=== PATIENT | female | born 1960 | race Caucasian/White ===

== ENCOUNTER → 2018-12-19 12:49 | Outpatient (CLI) | payer MEDICAID, SELFPAY ==
[2018-12-19 12:34] VITALS: BMI 44.0
--- NOTE | 2018-12-19 12:51 | RAD_ITS ---
STUDY: X-RAY - LEFT KNEE REASON FOR EXAM: Female, 58 years old. Pain TECHNIQUE: Four view(s) of the knee were obtained. COMPARISON: None. FINDINGS: The distal femur is unremarkable. The proximal tibia is unremarkable. There is mild narrowing of the medial femorotibial compartment. Normal lateral femorotibial compartment. Normal patellofemoral articulation. There is no fullness above the patella. The soft tissue structures are unremarkable. RAD/Knee 4 or More Views IMPRESSION: There are mild degenerative changes in the left knee with a medial predominance. No evidence of joint effusion. Electronically Signed: Chiara Coto MD at 15:51 EST , Service support ,
== END ==
PROVIDERS: Family Provider Family Medicine; PCP Family Medicine; Referring Provider Physician Assistant; Visit Provider Physician Assistant
DX: M25.562 Pain in left knee (principal)
CPT/HCPCS: 73564

== ENCOUNTER 2020-09-01 17:36 | Emergency (ER) | payer MEDICAID, SELFPAY ==
[2018-12-19 12:34] VITALS: BMI 44.0
[2020-09-01 17:37] VITALS: BP 163/81; PULSE 79; RESP 16; TEMP 36.6; O2SAT 98; BMI 45.5
--- NOTE | 2020-09-01 18:15 | ED.DCSUM_ITS ---
History of Present Illness Chief Complaint: Back Informant: Patient Narrative: Patient is a 60-year-old female who presents to the emergency department for low back pain. This started a few hours prior to arrival in the emergency department. She states she has been having issues with back spasms over the past month. She has had ongoing issues with this and is currently seeing physical therapy for it. She tried taking a muscle relaxer prior to coming in which did not give her any relief. She currently describes the pain as severe. Movements make it worse. She denies any fevers or chills. No saddle anesthesia. No urinary/bowel incontinence/retention. The pain does go down her right leg but not past her knee. She denies any recent falls or trauma. She states that she was driving whenever the back pain started this episode. No abdominal pain or chest pain/shortness of breath. Past Medical History - Allergies and Home Meds Allergies/Adverse Reactions: Allergies Sulfa (Sulfonamide Antibiotics) Allergy (Verified 09/01/20 17:39) Other Primary Care Physician: Bradford Miramontes MD [STAFF PHYSICIAN] - 2 Days Prior records reviewed: Yes Surgical History: - - Tonsillectomy, appendectomy, cholecystectomy, Smoking Status: Former smoker - Family History Maternal Family History: Family History (Last Reviewed 10/19/17 @ 13:03 by Karo Hamilton) Father CAD (coronary artery disease) Family History: Reports: No pertinent history Review of Systems All systems negative except as indicated General: Denies: Chills, Fever, Sweats Eyes: Denies: Visual changes - bilaterally, Diplopia ENT: Denies: Rhinorrhea, Sore throat Cardiovascular: Denies: Chest pain, Palpitations Respiratory: Denies: Dyspnea, Cough, Dyspnea on exertion Gastrointestinal: Denies: Abdominal pain, Nausea, Vomiting, Diarrhea Genitourinary: Denies: Dysuria, Hematuria, Frequency Musculoskeletal: Reports: Back pain, Extremity Pain. Denies: Neck pain Skin: Denies: Rash, Wounds Neurological: Denies: Headache, Weakness, Numbness Physical Exam Vital Signs/Narrative: Vital Signs Temp Pulse Resp BP Pulse Ox 09/01/20 17:37 97.8 F 79 16 163/81 H 98 Inital Vital Signs reviewed: Yes General: Well nourished, Well developed Head: Normocephalic, Atraumatic Eyes: Perrl, EOMI ENT: Moist mucous membranes, No rhinorrhea Neck: Supple, Nontender Cardiovascular: Regular rate, Regular rhythm, No murmurs Respiratory: No distress, CTA bilaterally, Chest nontender Abdomen: Soft, Nontender, Nondistended, Normal bowel sounds Back: Normal Inspection, - - Tenderness along the right lateral lower back/upper buttocks.. Negative for: Spinal tenderness Extremities: Nontender, No edema, - - 5 out of 5 muscle strength in all 4 extremities. Neurovascularly intact. Skin: Normal color, No rash Neurological: Alert, Oriented x3, Cranial nerves II-XII grossly intact, Normal Strength, Normal Sensation Psychological: Normal affect, Normal Mood Diagnostic/Tx/Re-eval - Medical Decision Making Patient presents to the ED for nontraumatic low back pain. She has no red flag symptoms for acute surgical emergency. Initial physical exam is limited as she will not sit up due to the back pain. We will give a dose of IM morphine for symptomatic treatment. Patient feels that pain is manageable after the IM morphine. She has no weakness in her lower extremities. She does feel comfortable going home at this time. We will write a prescription for pain control at home as well as prednisone. She does have leftover prescription of a muscle relaxer which she can take but she understands that this can make her sleepy and should not operate machinery on this. She is to follow-up with her PCP. Warning signs and symptoms which to return to the ED were reviewed with her. She understands and is agreeable this plan. Patient discharged home in stable condition. All questions answered. ED Disposition - Plan for ED Patient: Disposition: Home or Assisted Living Diagnosis: Low back pain Instructions: ED Spasm Back No Trauma Prescriptions: Hydrocodone Bitart/Apap 5-325 [[place] 5MG-325MG] 1 tab PO Q6H PRN PRN 3 Days #10 tab PRN Reason: Pain Transmission Status: Received by [employer] #30 Prednisone 40 mg PO DAILY 4 Days #8 tab Prescription Printed Referrals: Bradford Miramontes MD [STAFF PHYSICIAN] - 2 Days
[2020-09-01] MEDS: Morphine 4 MG/ML Syringe IM (18:22)
[2020-09-01] MEDS: HYDROcodone Bitartrate/Apap 5/325 Tablet PO (19:46)
[2020-09-01 20:01] VITALS: BP 151/74; PULSE 72; RESP 16; O2SAT 97
== END 2020-09-01 20:36 | disposition home or self-care (01) ==
PROVIDERS: Emergency Provider Emergency Medicine; PCP Nurse Practitioner Family
DX: M54.5 Low back pain (principal); Z87.891 Personal history of nicotine dependence; Z79.82 Long term (current) use of aspirin
CPT/HCPCS: 96372; 99284

== ENCOUNTER 2022-08-15 19:34 | Emergency (ER) | payer MEDICARE, MEDICAID, SELFPAY ==
[2022-08-15 19:35] VITALS: BP 115/86; PULSE 85; RESP 16; TEMP 36.4; O2SAT 97; BMI 38.7
--- NOTE | 2022-08-15 19:54 | EDS_ITS ---
HPI <ASIA Means - Last Filed: 08/15/22 20:59> History of Present Illness Chief Complaint: Cellulitis Narrative Narrative: 62-year-old female with PMH of DVT, renal carcinoma s/p left nephrectomy presents with right leg swelling and redness. She states she does not know why but for years the right ankle has been more swollen and pink. This worsened about 3 days ago and the redness has progressively spread up towards the knee. She is having occasional pain in the foot. There is no known injury. Yesterday she had subjective fever, chills, and vomiting and was evaluated at [facility] ER early this morning. She reports having blood work and a CT scan of her abdomen/pelvis which was unremarkable except for a lymph node that needs outpatient follow-up. She was prescribed Zofran. After discharge she denies having any further fever/chills or vomiting symptoms but was concerned about her leg so she called the nurse line and they recommended she come to the ED. She does have history of DVT in the past but currently only takes aspirin 81 mg. She has no chest pain or shortness of breath. PFSH <ASIA Means - Last Filed: 08/15/22 20:59> [facility] Medical History (Updated 08/15/22 @ 20:34 by ASIA Means) DVT (deep venous thrombosis) GERD (gastroesophageal reflux disease) Obstructive sleep apnea Home Medications aspirin 81 mg tablet,delayed release 81 mg PO DAILY 12/19/18 [History Last Taken Unknown] potassium citrate 10 mEq (1,080 mg) tablet,extended release 10 meq PO TID 12/19/18 [History Last Taken Unknown] sertraline 100 mg tablet (Zoloft) 100 mg PO DAILY 12/19/18 [History Last Taken Unknown] allopurinol 300 mg tablet 300 mg PO DAILY 08/15/22 [History Last Taken Unknown] cephalexin 500 mg capsule 500 mg PO Q6 7 days #28 CAPSULES 08/15/22 [Rx Last Taken Unknown] cholecalciferol (vitamin D3) 125 mcg (5,000 unit) capsule 125 mcg PO DAILY 08/15/22 [History Last Taken Unknown] lisinopril 5 mg tablet 5 mg PO DAILY 08/15/22 [History Last Taken Unknown] quercetin 500 mg capsule 500 mg PO DAILY 08/15/22 [History Last Taken Unknown] zinc 50 mg capsule 50 mg PO DAILY 08/15/22 [History Last Taken Unknown] Allergy/AdvReac Type Severity Reaction Status Date / Time Sulfa (Sulfonamide Allergy Other Verified 09/01/20 17:39 Antibiotics) Family History Father CAD (coronary artery disease) age 47 y/o from [place] Surgical History History of extraction of renal calculus History of right and left heart catheterization (~09/04/15) History of tonsillectomy and adenoidectomy Hx of cholecystectomy Social History (Updated 12/20/18 @ 10:10 by ASIA Esteves) Smoking Status: Former smoker ROS <ASIA Means - Last Filed: 08/15/22 20:59> ROS ED ROS Narrative Constitutional: Positive for fever, chills, malaise. Eyes: Negative for visual change. ENT: Negative for sore throat, ear pain, rhinorrhea. CVS: Negative for palpitations, chest pain, syncope. Respiratory: Negative for shortness of breath, cough, orthopnea. GI: Negative for abdominal pain, nausea, vomiting, diarrhea, constipation, melena, hematochezia. : Negative for dysuria, hematuria or frequency. Neuro: Negative for headache, motor/sensory dysfunction. Skin: Positive for rash. Musc: Positive for right leg pain, swelling. No trauma. Heme: Negative for easy bruising, bleeding, lymphadenopathy. EXAM <ASIA Means - Last Filed: 08/15/22 20:59> Physical Exam Narrative Exam Narrative: CONST: Patient sitting in no acute distress. EYES: Normal inspection. NECK: Normal inspection. RESP: No respiratory distress, CTAB. CVS: Regular rate and rhythm, no murmur, no gallop. ABD: Soft and nontender, no guarding or rebound, nondistended. SKIN: Color normal, no rash, warm, dry, intact. EXTREMITIES: Right lower extremity has 2+ pitting edema to the mid tibia, there is patchy erythema over the dorsum of the foot extending up the leg and reaches the knee on the lateral calf. There are small abrasions on the lateral calf. No crepitus or fluctuance. 2+ DP pulses. NEURO: Oriented x4. PSYCH: Normal affect. Const Vital Signs: 08/15/22 19:35 Temperature 97.6 F L Temperature Source Temporal Pulse Rate 85 Respiratory Rate 16 Blood Pressure 115/86 H Blood Pressure Mean 95 Pulse Ox 97 Oxygen Delivery Method Room Air <Dr. David Mclaughlin DO - Last Filed: 08/15/22 21:14> Physical Exam Const Vital Signs: 08/15/22 19:35 Temperature 97.6 F L Temperature Source Temporal Pulse Rate 85 Respiratory Rate 16 Blood Pressure 115/86 H Blood Pressure Mean 95 Pulse Ox 97 Oxygen Delivery Method Room Air MDM <Gaviota Holcomb PA - Last Filed: 08/15/22 20:59> MDM MDM Narrative Medical decision making narrative: Patient has redness and edema of her right leg over the last few days. No trauma. She appears well and nontoxic. Afebrile with normal vital signs. Right lower leg does have 2+ pitting edema and patchy erythema over the dorsum of the foot extending up to the knee. Is also small abrasion on the lateral calf. There is no signs of abscess or necrotizing fasciitis. Extremity is neurovascularly intact. I reviewed the labs she had this morning at [facility] which show normal white count and lactate. Work-up here shows normal white count of 8.3. She will be treated for cellulitis with IV Ancef and prescribed doxycycline for home with return precautions. She was discharged in stable condition. Lab Data Attestation: I reviewed the patient's lab results. Labs: Laboratory Results - last 24 hr 08/15/22 08/15/22 20:25 20:25 WBC 8.3 RBC 4.01 L Hgb 11.9 L Hct 35.2 L MCV 87.8 MCH 29.7 MCHC 33.8 RDW Std Deviation 45.4 H RDW Coeff of [place] 14.1 Plt Count 158 MPV 9.0 Immature Gran % (Auto) 0.400 Neut % (Auto) 77.8 H Lymph % (Auto) 12.1 L [place] % (Auto) 9.1 Eos % (Auto) 0.4 Baso % (Auto) 0.2 Absolute Neuts (auto) 6.5 Absolute Lymphs (auto) 1.01 Nucleated RBC % 0 Sodium 141 Potassium 4.2 Chloride 108 H Carbon Dioxide 27.0 Anion Gap 6 BUN 22 H Creatinine 0.87 Estim Creat Clear Calc 61.96 Est GFR (MDRD) Af Amer 85 Est GFR (MDRD) Non-Af 70 BUN/Creatinine Ratio 25.3 H Glucose 103 Calcium 8.7 <Dr. David Mclaughlin, DO - Last Filed: 08/15/22 21:14> [facility] Lab Data Labs: Laboratory Results - last 24 hr 08/15/22 08/15/22 20:25 20:25 WBC 8.3 RBC 4.01 L Hgb 11.9 L Hct 35.2 L MCV 87.8 MCH 29.7 MCHC 33.8 RDW Std Deviation 45.4 H RDW Coeff of [place] 14.1 Plt Count 158 MPV 9.0 Immature Gran % (Auto) 0.400 Neut % (Auto) 77.8 H Lymph % (Auto) 12.1 L [place] % (Auto) 9.1 Eos % (Auto) 0.4 Baso % (Auto) 0.2 Absolute Neuts (auto) 6.5 Absolute Lymphs (auto) 1.01 Nucleated RBC % 0 Sodium 141 Potassium 4.2 Chloride 108 H Carbon Dioxide 27.0 Anion Gap 6 BUN 22 H Creatinine 0.87 Estim Creat Clear Calc 61.96 Est GFR (MDRD) Af Amer 85 Est GFR (MDRD) Non-Af 70 BUN/Creatinine Ratio 25.3 H Glucose 103 Calcium 8.7 Treatment and Re-Evaluation Narrative: I have personally performed a face to face assessment of the patient and have reviewed the TUNG Note. I performed a substantive portion of the visit including all aspects of the following. My hui findings include: History: Patient presents with right leg redness and swelling that has been getting worse over the past couple days. Patient denies any fevers or chills. Patient states she scratched her right lower leg recently. Patient denies any discharge or drainage. Patient denies any new trauma or injury. Exam: Vital signs are stable. Patient is afebrile. Patient is in no acute distress. There is some erythema and warmth over the right lower leg and foot. There is no fluctuance. There is no evidence of any abscess. There is superficial abrasions over the lateral aspect of the right lower leg. There is no bleeding. There is full range of motion of the right knee and ankle. Sensation is intact to light touch in all digits. Capillary refill is less than 2 seconds in all digits. Medical Decision Making: CBC was within normal limits. Basic metabolic profile was within normal limits. Patient was given a dose of Ancef here. Patient was given a prescription for Keflex. Patient was instructed to keep the wound clean and dry. Patient was instructed to follow-up with her primary care physician in 5 to 7 days. Patient understood and was agreeable with the plan. All questions were answered. Discharge Plan Triage Chief Complaint: Cellulitis ED Midlevel Provider: Gaviota Holcomb ED Provider: David Mclaughlin Dx/Rx/DC Orders Clinical Impression: Cellulitis of leg, right Instructions: Cellulitis Dc Prescriptions: New cephalexin 500 mg capsule 500 mg PO Q6 7 Days Qty: 28 0RF Discontinued doxycycline hyclate 50 mg Capsule 50 mg PO DAILY No Action potassium citrate 10 mEq (1,080 mg) tablet extended release 10 meq PO TID sertraline [Zoloft] 100 mg tablet 100 mg PO DAILY aspirin 81 mg tablet,delayed release (DR/EC) 81 mg PO DAILY allopurinol 300 mg tablet 300 mg PO DAILY Label Comments: TAKE 1 TABLET BY MOUTH DAILY lisinopril 5 mg Tablet 5 mg PO DAILY cholecalciferol (vitamin D3) 125 mcg (5,000 unit) Capsule 125 mcg PO DAILY zinc 50 mg Capsule 50 mg PO DAILY quercetin 500 mg Capsule 500 mg PO DAILY Primary Care Provider: Graham Rincon Referrals: To [facility], [facility] [Non-Staff] - Activity Restrictions/Additional Instructions: You are being treated for cellulitis of your right leg which is a skin infection. Take the doxycycline twice daily as prescribed and follow-up with your primary care doctor this week. If the redness continues to spread up your leg or you develop a fever or worsen come back to the ER. Disposition Disposition: Home, Self Care
[2022-08-15 20:31] LABS: Absolute Lymphocyte Count 1.01 X10^3/uL (0.83-4.51); Absolute Neutrophil Count 6.5 X10^3/uL (2.0-7.7); Basophil# 0.02 X10^3/uL; Basophil% 0.2 % (0-1); Eosinophil# 0.03 X10^3/uL; Eosinophils% 0.4 % (0-5); Hematocrit 35.2 % (37-47); Hemoglobin 11.9 g/dL (12.0-15.0); Lymphocyte # 1.01 X10^3/ul (0.83-4.51); Lymphocyte % 12.1 % (19-41); Mean Corp Hgb Conc 33.8 g/dL (32-36); Mean Corpuscular Hgb 29.7 pg (27.0-32.0); Mean Corpuscular Volume 87.8 fL (81-99); Monocyte# 0.76 X10^3/uL; Monocyte% 9.1 % (0-10); NRBC Flagged by Analyzer 0 % (0-5); Neutrophil # 6.48 X10^3/uL (2.7-7.7); Neutrophil % 77.8 % (47-70); Platelet Count 158 K/mm3 (150-450); RBC Distribution Width CV 14.1 % (11.6-14.6); RBC Distribution Width SD 45.4 fl (35.1-43.9); Red Blood Count 4.01 M/mm3 (4.2-5.4); White Blood Count 8.3 K/mm3 (4.4-11.0)
[2022-08-15] MEDS: Cefazolin 1 GM/50 ML BAG IV (20:31)
[2022-08-15 20:46] LABS: Anion Gap 6 (5-15); BUN 22 mg/dL (7-18); BUN/Creat Ratio 25.3 RATIO (10-20); Calcium,Total 8.7 mg/dL (8.5-10.1); Chloride 108 mmol/L (98-107); Creatinine, Serum 0.87 mg/dL (0.55-1.02); EST Glomerular Filtration Rate 70 mL/min (>60); Est Glom Filt Rate - Afr Amer 85 mL/min (>60); Estimated Creatinine Clearance 61.96 ml/min; Glucose 103 mg/dL (74-106); Potassium 4.2 mmol/L (3.5-5.1); Sodium Level 141 mmol/L (136-145)
== END 2022-08-15 21:09 | disposition home or self-care (01) ==
LOC: ED 20:38
PROVIDERS: Physician Assistant; Emergency Provider Emergency Medicine; PCP Family Medicine; Visit Provider Emergency Medicine
DX: L03.115 Cellulitis of right lower limb (principal); G47.33 Obstructive sleep apnea (adult) (pediatric); Z87.891 Personal history of nicotine dependence; Z79.82 Long term (current) use of aspirin; Z79.899 Other long term (current) drug therapy; Z86.718 Personal history of other venous thrombosis and embolism
CPT/HCPCS: 80048; 85025; 96365; 99283; A4216

== ENCOUNTER 2022-08-16 10:10 | Emergency (ER) | payer MEDICARE, MEDICAID, SELFPAY ==
[2022-08-16 10:12] VITALS: BP 116/72; PULSE 86; RESP 18; TEMP 35.9; O2SAT 97; BMI 39.2
--- NOTE | 2022-08-16 10:26 | VDLE_ITS ---
Reason For Study: swelling RLE RIGHT LEFT GSV is normal. CFV is compressible, spontaneous, phasic, CFV is compressible, spontaneous, phasic, competent, and demonstrates normal competent and demonstrates normal augmentation. augmentation. FV is compressible, spontaneous, phasic, competent and demonstrates normal augmentation. POP V is compressible, spontaneous, phasic, competent and demonstrates normal augmentation. T/P Trunk is compressible. PTV is compressible. RT PerV is compressible. Procedure This is a venous duplex using B-mode, color flow and spectral Doppler. Exam performed portable in ED. A preliminary report was called and/or faxed to ED @ 11:20 am. VL/Venous Duplex US, Unilateral Interpretation Summary There is no evidence of right lower extremity deep vein thrombosis. Right great saphenous vein appears patent and compressible segmentally. Normal flow patterns left common f emoral vein Ordering Physician: Chiara Bee Referring Physician: Vivek Rincon Performed By: Chitra Butterfield RDCS, RVT
--- NOTE | 2022-08-16 10:28 | EDS_ITS ---
HPI History of Present Illness Chief Complaint: Cellulitis Informant: patient Onset/Context/Timing Onset: Days Context: Gradual Onset Current Severity: Moderate Maximum Severity: Moderate Narrative Narrative: Patient presents secondary to redness and swelling of the right foot. Patient was seen at [facility] yesterday as well as in our emergency room last evening. Lab work was unremarkable. She is on chronic doxycycline and was written for Keflex. She woke this morning with increased redness and swelling so she came back to the emergency room. She has not yet picked up her antibiotic. She has not had fever or chills. [facility] Medical History DVT (deep venous thrombosis) GERD (gastroesophageal reflux disease) Obstructive sleep apnea Renal carcinoma Home Medications aspirin 81 mg tablet,delayed release 81 mg PO DAILY 12/19/18 [History Last Taken Unknown] potassium citrate 10 mEq (1,080 mg) tablet,extended release 10 meq PO TID 12/19 [History Last Taken Unknown] sertraline 100 mg tablet (Zoloft) 100 mg PO DAILY 12/19/18 [History Last Taken Unknown] allopurinol 300 mg tablet 300 mg PO DAILY 08/15/22 [History Last Taken Unknown] cephalexin 500 mg capsule 500 mg PO Q6 7 days #28 CAPSULES 08/15/22 [Rx Last Taken Unknown] cholecalciferol (vitamin D3) 125 mcg (5,000 unit) capsule 125 mcg PO DAILY 08/15/22 [History Last Taken Unknown] lisinopril 5 mg tablet 5 mg PO DAILY 08/15/22 [History Last Taken Unknown] quercetin 500 mg capsule 500 mg PO DAILY 08/15/22 [History Last Taken Unknown] zinc 50 mg capsule 50 mg PO DAILY 08/15/22 [History Last Taken Unknown] doxycycline monohydrate 100 mg capsule 100 mg PO BID #20 caps 08/16/22 [Rx Last Taken Unknown] hydrocodone-acetaminophen 5-325mg 5mg-325mg 1 tab PO Q6H PRN pain 3 days #10 tabs 08/16/22 [Rx Last Taken Unknown] Allergy/AdvReac Type Severity Reaction Status Date / Time Sulfa (Sulfonamide Allergy Other Verified 08/16/22 10:11 Antibiotics) Family History Father CAD (coronary artery disease) age 47 y/o from [place] Surgical History History of extraction of renal calculus History of left nephrectomy History of right and left heart catheterization (~09/04/15) History of tonsillectomy and adenoidectomy Hx of cholecystectomy Social History Smoking Status: Former smoker ROS ROS ED Constitutional Constitutional ED: Denies chills or fever(s) Eyes Eyes: Denies change in vision or discharge from eye(s) ENT ENT ED: Denies discharge from eye(s), rhinorrhea or sore throat Cardiovascular Cardiovascular: Denies chest pain or palpitations Respiratory/Chest Respiratory/Chest: Denies cough or dyspnea Gastrointestinal Gastrointestinal: Denies abdominal pain, diarrhea, nausea or vomiting Genitourinary Genitourinary ED: Denies difficulty urinating or dysuria Musculoskeletal Musculoskeletal: Reports extremity pain; Denies back pain Integumentary Reports Abrasions; Denies rash Neurologic Neurologic: Denies headache(s) or weakness Psychiatric Psychiatric: Denies anxiety or depression Allergic/Immunologic Allergic/Immunologic ED: Denies lip swelling or urticaria EXAM Physical Exam Const Vital Signs: 08/16/22 10:12 Temperature 96.6 F L Temperature Source Temporal Pulse Rate 86 Respiratory Rate 18 Blood Pressure 116/72 Blood Pressure Mean 86 Pulse Ox 97 Oxygen Delivery Method Room Air Positive well nourished and well developed General Appearance ED: well developed HEENT Reports normocephalic and head/scalp atraumatic Eyes PERRL and EOMs intact bilaterally Neck supple Chest Wall inspection of chest normal and palpation of chest normal Resp normal respiratory effort and clear to auscultation bilaterally Cardio regular rate and regular rhythm GI normal to inspection, nondistended, normoactive bowel sounds Palpation: soft Extremity Extremity Narrative: Edema and erythema to the dorsum of the right foot. Abrasions noted on the right hutton with mild patchy erythema. Neuro oriented x3 and no sensory deficits noted Sensorium / Orientation: alert Psych mental status grossly normal Skin Skin Narrative: Right lower extremity erythema as noted above. MDM MDM MDM Narrative Medical decision making narrative: I reviewed the patient's work-up from yesterday. Lab work is repeated today along with venous ultrasound of the right lower extremity. She is given a dose of vancomycin. Lab Data Attestation: I reviewed the patient's lab results. Labs: Laboratory Results - last 24 hr 08/16/22 08/16/22 08/16/22 10:39 10:39 10:39 WBC 8.4 RBC 4.39 Hgb 12.6 Hct 39.2 MCV 89.3 MCH 28.7 MCHC 32.1 D RDW Std Deviation 47.0 H RDW Coeff of [place] 14.3 Plt Count 176 MPV 9.8 Immature Gran % (Auto) 0.200 Neut % (Auto) 81.9 H Lymph % (Auto) 9.0 L [place] % (Auto) 7.6 Eos % (Auto) 0.8 Baso % (Auto) 0.5 Absolute Neuts (auto) 6.9 Absolute Lymphs (auto) 0.76 L Nucleated RBC % 0 Sodium 141 Potassium 3.7 Chloride 105 Carbon Dioxide 27.0 Anion Gap 9 BUN 19 H Creatinine 0.91 Estim Creat Clear Calc 59.24 Est GFR (MDRD) Af Amer 81 Est GFR (MDRD) Non-Af 67 BUN/Creatinine Ratio 20.9 H Glucose 93 Lactic Acid 1.1 Calcium 9.0 Treatment and Re-Evaluation Narrative: Lab work remains unremarkable with normal white count. 82% neutrophils are noted. Chemistry studies unremarkable with a normal lactic acid. Venous ultrasound of the right lower extremity is obtained. Patient states tech a dvised her that there was no evidence of a blood clot. Simone wrap will be applied to the right lower extremity to help with fluid reabsorption and swelling. I encouraged her to keep her leg elevated above the level of her heart. She will be given [place] for pain here and a prescription be sent to the pharmacy for her. She is to parts picker the antibiotic at the pharmacy that was sent yesterday. Patient reportedly is on doxycycline for acne at home. She is only on 50 mg once a day. I will also go ahead and send prescription for doxycycline 100 mg twice daily to help for MRSA coverage. When she completes this she can go back to her low-dose Doxy. Discharge Plan Triage Chief Complaint: Cellulitis ED Provider: Chiara Bee Dx/Rx/DC Orders Clinical Impression: Cellulitis Instructions: ED Cellulitis Prescriptions: New hydrocodone-acetaminophen 5-325 mg tablet 1 tab PO Q6H PRN (Reason: pain) 3 Days Qty: 10 0RF doxycycline monohydrate 100 mg capsule 100 mg PO BID Qty: 20 0RF No Action potassium citrate 10 mEq (1,080 mg) tablet extended release 10 meq PO TID sertraline [Zoloft] 100 mg tablet 100 mg PO DAILY aspirin 81 mg tablet,delayed release (DR/EC) 81 mg PO DAILY allopurinol 300 mg tablet 300 mg PO DAILY Label Comments: TAKE 1 TABLET BY MOUTH DAILY lisinopril 5 mg Tablet 5 mg PO DAILY cholecalciferol (vitamin D3) 125 mcg (5,000 unit) Capsule 125 mcg PO DAILY zinc 50 mg Capsule 50 mg PO DAILY quercetin 500 mg Capsule 500 mg PO DAILY cephalexin 500 mg capsule 500 mg PO Q6 7 Days Qty: 28 0RF Primary Care Provider: Graham Rincon Referrals: Graham Rincon MD [Primary Care Provider] - 1 Week Disposition Disposition: Home, Self Care
[2022-08-16 10:55] LABS: Absolute Lymphocyte Count 0.76 X10^3/uL (0.83-4.51); Absolute Neutrophil Count 6.9 X10^3/uL (2.0-7.7); Basophil# 0.04 X10^3/uL; Basophil% 0.5 % (0-1); Eosinophil# 0.07 X10^3/uL; Eosinophils% 0.8 % (0-5); Hematocrit 39.2 % (37-47); Hemoglobin 12.6 g/dL (12.0-15.0); Lymphocyte # 0.76 X10^3/ul (0.83-4.51); Mean Corp Hgb Conc 32.1 g/dL (32-36); Mean Corpuscular Hgb 28.7 pg (27.0-32.0); Mean Corpuscular Volume 89.3 fL (81-99); Mean Platelet Vol. 9.8 fl (6.2-12.0); Monocyte# 0.64 X10^3/uL; Monocyte% 7.6 % (0-10); NRBC Flagged by Analyzer 0 % (0-5); Neutrophil # 6.87 X10^3/uL (2.7-7.7); Neutrophil % 81.9 % (47-70); Platelet Count 176 K/mm3 (150-450); RBC Distribution Width CV 14.3 % (11.6-14.6); Red Blood Count 4.39 M/mm3 (4.2-5.4); White Blood Count 8.4 K/mm3 (4.4-11.0)
[2022-08-16 11:07] LABS: Anion Gap 9 (5-15); BUN 19 mg/dL (7-18); BUN/Creat Ratio 20.9 RATIO (10-20); Chloride 105 mmol/L (98-107); Creatinine, Serum 0.91 mg/dL (0.55-1.02); EST Glomerular Filtration Rate 67 mL/min (>60); Est Glom Filt Rate - Afr Amer 81 mL/min (>60); Estimated Creatinine Clearance 59.24 ml/min; Glucose 93 mg/dL (74-106); Potassium 3.7 mmol/L (3.5-5.1); Sodium Level 141 mmol/L (136-145)
[2022-08-16 11:15] LABS: Lactic Acid 1.1 mmol/L (0.4-1.9)
[2022-08-16] MEDS: HYDROcodone Bitartrate/Apap 5/325 Tablet PO (12:23)
[2022-08-16 12:37] VITALS: BP 118/87; PULSE 88; RESP 16; O2SAT 99
[2022-08-16 14:06] VITALS: BP 120/79; PULSE 87; RESP 16; O2SAT 99
== END 2022-08-16 14:24 | disposition home or self-care (01) ==
LOC: ED 11:49
PROVIDERS: Emergency Provider Emergency Medicine; PCP Family Medicine; Visit Provider Emergency Medicine
DX: L03.115 Cellulitis of right lower limb (principal); G47.33 Obstructive sleep apnea (adult) (pediatric); Z87.891 Personal history of nicotine dependence; Z86.718 Personal history of other venous thrombosis and embolism
CPT/HCPCS: 36415; 80048; 83605; 85025; 87040; 93971; 96365; 96366; 99283; J7040; J7050; A4216

== ENCOUNTER 2022-09-02 08:50 | Outpatient (RCR) | payer MEDICARE, MEDICAID, SELFPAY ==
[2022-09-02 09:31] VITALS: BP 123/72; PULSE 69; RESP 18; TEMP 36.3
--- NOTE | 2022-09-02 17:15 | HP.PCM_ITS ---
History of Present Illness Date of Service: 09/02/22 Chief Complaint: Non healing right leg wound History of Wound: Ms. Jennings is a 62-year-old who was referred here due to a nonhealing right leg wound. She states that the wound has been present for about 2 years however over the last couple of weeks while waiting for her visit, it healed. Started out after she tried shaving. Tried different measures without significant healing over the last 2 years but as above, over the last couple of weeks has healed and stayed healed. She reports that she does have swelling of her right lower extremity with occasional blistering of the area. Does not wear any form of compression. No shortness of breath. She feels well otherwise. FORMERLY [facility], 1928–1983 Medical History (Updated 09/02/22 @ 17:[address] Catina Mason MD) DVT (deep venous thrombosis) Edema of both lower extremities due to peripheral venous insufficiency GERD (gastroesophageal reflux disease) Obstructive sleep apnea Renal carcinoma Home Medications aspirin 81 mg tablet,delayed release 81 mg PO DAILY 12/19/18 [History Last Taken Unknown] potassium citrate 10 mEq (1,080 mg) tablet,extended release 10 meq PO TID 12/19/18 [History Last Taken Unknown] sertraline 100 mg tablet (Zoloft) 100 mg PO DAILY 12/19/18 [History Last Taken Unknown] allopurinol 300 mg tablet 300 mg PO DAILY 08/15/22 [History Last Taken Unknown] cholecalciferol (vitamin D3) 125 mcg (5,000 unit) capsule 125 mcg PO DAILY 08/15/22 [History Last Taken Unknown] lisinopril 5 mg tablet 5 mg PO DAILY 08/15/22 [History Last Taken Unknown] quercetin 500 mg capsule 500 mg PO DAILY 08/15/22 [History Last Taken Unknown] zinc 50 mg capsule 50 mg PO DAILY 08/15/22 [History Last Taken Unknown] Allergy/AdvReac Type Severity Reaction Status Date / Time Sulfa (Sulfonamide Allergy Other Verified 09/02/22 09:48 Antibiotics) Family History Father CAD (coronary artery disease) age 47 y/o from [place] Surgical History History of extraction of renal calculus History of left nephrectomy History of right and left heart catheterization (~09/04/15) History of tonsillectomy and adenoidectomy Hx of cholecystectomy Social History Smoking Status: Former smoker ROS Constitutional Constitutional: Denies anorexia, body ache(s), fatigue, frequent falls, headache(s), increased appetite, lethargy or night sweats Eyes Eyes: Denies blindness, change in eye color, change in vision, decreased night vision, discongugate gaze, double vision, loss of central vision or loss of vision ENT HEENT: Denies ear discharge, ear pain, epistaxis, foreign body in nose, halitosis, headache(s), mouth pain or nasal discharge Cardiovascular Cardiovascular: Denies chest pain at rest, chest pain with activity, claudication, clubbing, dyspnea at rest, erythema on extremities, flutter in chest or pale [place]a skin Respiratory/Chest Respiratory/Chest: Denies dusky skin, excessive phlegm production, hoarseness, inability to speak, nail bed cyanosis, pain with cough or portable oxygen @ home Gastrointestinal Gastrointestinal: Denies bloating, chewing difficulty, coffee ground emesis, cramping, dry heaves, dyspepsia, dysphagia or excessive flatus Genitourinary Genitourinary: Denies burning urination, difficulty urinating, dribbling, dysuria, flank pain or genital pain Musculoskeletal Musculoskeletal: Denies joint swelling, loss of height, muscle cramps, muscle spasms, muscle weakness, myalgias or neck pain Integumentary Integumentary: Denies erythema, jaundice, lesions, nail changes, non-healing lesions, photosensitivity, pruritus or rash Neurologic Neurologic: Denies abnormal movements, burning sensations, confusion, convulsions, disequilibrium, focal weakness, frequent falls or headache(s) Psychiatric Psychiatric: Denies cognitive impairment, confusion, depression, difficulty concentrating, hallucinations, homicidal ideation, mood swings, panic attacks or tactile hallucinations Endocrine Endocrinology: Denies excessive sweating, fatigue, flushing, heat intolerance, increase in ring/shoe/hat size, palpitations or polyphagia Hematologic/Lymphatic Hematologic/Lymphatic: Denies easy bleeding, easy bruising or lymphadenopathy Allergic/Immunologic Allergic/Immunologic: Denies tongue swelling, hives, urticaria, eczemia, wheezing or asthma Vital Signs Vital Signs Vital Signs: 09/02/22 09:31 Temperature 97.4 F L Temperature Source Temporal Pulse Rate 69 Respiratory Rate 18 Blood Pressure 123/72 H Blood Pressure Mean 89 Blood Pressure Source Monitor Physical Exam Const alert, oriented x3 and no apparent distress General Appearance: cooperative, comfortable and well developed HEENT normocephalic, head/scalp atraumatic and hearing grossly normal bilaterally Eyes EOMs intact bilaterally General Eye: normal appearance of both eyes Neck full ROM and supple General: normal visual inspection Resp normal respiratory effort Effort and Inspection: able to speak in complete sentences Extremity General Extremity: edema Skin no wounds General Skin Exam: no breakdown Neuro oriented x3, CN's II-XII intact bilaterally, moves all extremities and no focal motor deficits Psych mental status grossly normal, thought process normal, cooperative, affect normal and speech normal Charges/Coding Visit Charges Office Visits / Consults: [id number] OV L3 New Assessment/Plan Assessment/Plan (1) Edema of both lower extremities due to peripheral venous insufficiency: CODE(S): I87.2 - Venous insufficiency (chronic) (peripheral) PLAN: Plan Presents here for a chronic right lower extremity wound however at the time of this visit, wound is healed and there is no open area. There is clearly an area of hypopigmentation. Bilateral pitting edema, right greater than left. Lengthy discussion had with patient on the need for compression. Prescription for compression stockings 20 to 30 mmHg sent. She was advised to wear consistently take off at night. Leg elevation, exercise as tolerated and low-sodium discussed. Adequately moisturizing her skin also discussed. She voiced understanding. Due to no wound present currently, she will be discharged from the wound center however, she was advised to call with any further questions or concerns. She voiced understanding. This note was generated with [employer] software. It may contain incorrect words, spelling, and punctuation that were not noted in checking the note before signing.
== END 2022-09-02 14:29 | disposition home or self-care (01) ==
LOC: WC 08:50
PROVIDERS: PCP Family Medicine; Visit Provider Internal Medicine
DX: I87.2 Venous insufficiency (chronic) (peripheral) (principal); Z87.891 Personal history of nicotine dependence; Z79.82 Long term (current) use of aspirin; R60.0 Localized edema; K21.9 Gastro-esophageal reflux disease without esophagitis; G47.33 Obstructive sleep apnea (adult) (pediatric); Z86.718 Personal history of other venous thrombosis and embolism; Z79.899 Other long term (current) drug therapy
CPT/HCPCS: 99203; G0463

== ENCOUNTER 2023-08-02 19:20 | Emergency (ER) | payer MEDICARE, MEDICAID, SELFPAY ==
[2023-08-02 19:21] VITALS: BP 115/70; PULSE 73; RESP 15; TEMP 36.4; O2SAT 98; BMI 34.7
--- NOTE | 2023-08-02 19:36 | EX.ED.DYSGE1 ---
HPI History of Present Illness Chief Complaint: Chest Pain Detail of Chief Complaint: Right sided chest pain status post fall Informant: patient Onset/Context/Timing Onset: Days (Patient fell 1 week ago.) Context: Sudden Onset Timing: Continuous Quality: Pain Location: Initially anterior to posterior axillary line, please see HPI narrative for Current Severity: Moderate Maximum Severity: Severe Worsened by: Movement of right upper extremity, breathing, bending, twisting Relieved by: Nothing Associated Symptoms Associated Symptoms: Right-sided chest pain Narrative Narrative: Patient is a 63-year-old woman with history of obstructive sleep apnea, DVT 2000 who was sent from the urgent care to be evaluated in the emergency room. She was told she needs an EKG. The patient was asked did the practitioner at the urgent care examine her. Her response was no . Patient denies fever, chills night sweats. Patient denies bruising of her chest wall. Patient does complain of right scapular pain as well. She has new symptoms from when she had the initial injury. Presently she complains of pain with movement and breathing. She complains of pain right anterior chest and right scapular region. Initially she had pain from her anterior posterior clavicular line over ribs 5 through 7. She has not noted any change in the color of her urine. Prior similar symptoms: No Recent Illness/Hospitalization: No PFSH [facility] Medical History DVT (deep venous thrombosis) Edema of both lower extremities due to peripheral venous insufficiency GERD (gastroesophageal reflux disease) Obstructive sleep apnea Renal carcinoma Home Medications aspirin 81 mg tablet,delayed release 81 mg PO DAILY 12/19/18 [History Last Taken Unknown] potassium citrate 10 mEq (1,080 mg) tablet,extended release 10 meq PO TID 12/19/18 [History Last Taken Unknown] sertraline 100 mg tablet (Zoloft) 100 mg PO DAILY 12/19/18 [History Last Taken Unknown] allopurinol 300 mg tablet 300 mg PO DAILY 08/15/22 [History Last Taken Unknown] cholecalciferol (vitamin D3) 125 mcg (5,000 unit) capsule 125 mcg PO DAILY 08/15/22 [History Last Taken Unknown] lisinopril 5 mg tablet 5 mg PO DAILY 08/15/22 [History Last Taken Unknown] quercetin 500 mg capsule 500 mg PO DAILY 08/15/22 [History Last Taken Unknown] zinc 50 mg capsule 50 mg PO DAILY 08/15/22 [History Last Taken Unknown] oxycodone-acetaminophen 5 mg-325 mg tablet 1 tab PO Q6H PRN PRN pain 5 days #20 TABLETS 08/02/23 [Rx Last Taken Unknown] Allergy/AdvReac Type Severity Reaction Status Date / Time Sulfa (Sulfonamide Allergy Other Verified 08/02/23 19:24 Antibiotics) Family History Father CAD (coronary artery disease) age 47 y/o from [place] Surgical History History of extraction of renal calculus History of left nephrectomy History of right and left heart catheterization (~09/04/15) History of tonsillectomy and adenoidectomy Hx of cholecystectomy Social History (Updated 08/02/23 @ 19:[address] Emir Ingram MD) household members: spouse Smoking Status: Former smoker ROS ROS ED Constitutional Constitutional ED: Denies chills, fever(s), subjective, sweats or weight loss Eyes Eyes: Denies blurry vision, change in vision or diplopia ENT ENT ED: Denies ear pain, rhinorrhea or sore throat Cardiovascular Cardiovascular: Reports chest pain; Denies orthopnea, palpitations, paroxysmal nocturnal dyspnea or racing heartbeat Respiratory/Chest Respiratory/Chest: Reports dyspnea; Denies cough, dyspnea on exertion, orthopnea or paroxysmal nocturnal dyspnea Gastrointestinal Gastrointestinal: Denies abdominal pain, nausea or vomiting Genitourinary Genitourinary ED: Denies dysuria, hematuria or urinary frequency Musculoskeletal Musculoskeletal: Denies arthralgias, back pain, myalgias or neck pain Integumentary Denies rash Neurologic Neurologic: Denies headache(s) or paresthesias Psychiatric Psychiatric: Denies anxiety or depression Endocrine Endocrinology: Denies cold intolerance or heat intolerance Hematologic/Lymphatic Hematologic/Lymphatic: Reports systems reviewed and no addt'l complaints, except as documented and other Details: Patient is not on an anticoagulant. EXAM Physical Exam Const Vital Signs: 08/02/23 19:21 Temperature 97.6 F L Temperature Source Temporal Pulse Rate 73 Respiratory Rate 15 Blood Pressure 115/70 Blood Pressure Mean 85 Pulse Ox 98 Oxygen Delivery Method Room Air Positive well nourished, well developed and obese Constitutional Narrative: Patient grimaces when she was asked to transfer from the chair to the examination bed. General Appearance ED: well developed; Negative for cyanotic, diaphoretic, NAD or pallor Nutritional Appearance: obese HEENT Reports moist mucous membranes HEENT Narrative: Head is atraumatic normocephalic. There is no trauma to the ears. Nares patent. There is no septal deviation or hematoma. There is no dental trauma. Eyes PERRL and EOMs intact bilaterally Eyes Narrative: There is no subconjunctival hemorrhage noted. General Eye ED: Negative for scleral icterus Neck no lymphadenopathy, supple and no JVD Chest Wall inspection of chest normal and palpation of chest normal Chest Narrative: AP pressure sternum causes pain from the anterior to posterior axillary line on the right. There is no crepitus or subcutaneous air. Breath sounds may be slightly diminished right upper lobe region. There is no rales or rhonchi noted. Resp normal respiratory effort and clear to auscultation bilaterally Effort and Inspection: pain with movement RUE Auscultation: diminished lung sounds right upper; Negative for rales, rhonchi or wheezes Cardio regular rate, regular rhythm, S1 normal heart sound, S2 normal heart sound and no murmurs GI normal to inspection, nondistended, normoactive bowel sounds, non-tender and non-distended; Negative for hepatosplenomegaly or no masses Palpation: soft Back/Spine no CVA tenderness Thoracic Spine / Upper Back: thoracic spinal tenderness Extremity normal to inspection General Extremety ED: Negative for edema or tenderness General Extremity: Negative for edema Neuro oriented x3, CN's II-XII intact bilaterally and no sensory deficits noted Neuro Narrative: Gait was observed and is normal. Sensorium / Orientation: alert Motor Exam: strength 5/5 throughout Psych mental status grossly normal Skin no rashes or lesions noted, no wounds and No skin turgor normal General Skin Exam: Negative for jaundice or pallor MDM MDM MDM Narrative Medical decision making narrative: Concern patient has bruised rib versus fractured ribs. X-ray was obtained to evaluate for pneumothorax or hemothorax. Since there is no tenderness in the right upper quadrant in my opinion at this time patient does not need a CT of the right upper quadrant. If there are lower rib cage pain we will need to obtain CT because there is a 10 to 15% incidence of hepatic injury associated with lower rib fractures. IV was established. Patient was medicated with Zofran, Toradol and morphine. History & Record Review Additional record(s) reviewed:: Prior outpatient record (For depression and patellofemoral ligament issues), Prior ED visit (Cellulitis, GERD, anxiety depression) and Prior labs Radiography Chest X-Ray - ED: Read by ED Physician (5 view rib detail with PA and lateral chest x-ray reveals no pneumothorax, hemothorax or obvious fractured ribs. Cardiac silhouette size normal. Perihilar regions normal. There is no evidence of a pneumomediastinum. This was apparently reviewed and interpreted by me at 2007) Treatment and Re-Evaluation :: Was reassessed at 2014. Her pain is improved markedly. She was informed that her x-ray did not reveal any significant abnormality. Patient was discharged with opiate analgesics, incentive spirometer and appropriate home-going instructions Discharge Plan Triage Chief Complaint: Chest Pain ED Provider: Emir Ingram Dx/Rx/DC Orders Clinical Impression: Injury due to fall, Contusion of rib on right side, Acute traumatic injury of chest wall Instructions: ED Bruise, Rib Prescriptions: New oxycodone-acetaminophen [oxycodone-acetaminophen] 5-325 mg tablet 1 tab PO Q6H PRN PRN (Reason: pain) 5 Days Qty: 20 0RF No Action potassium citrate 10 mEq (1,080 mg) tablet extended release 10 meq PO TID sertraline [Zoloft] 100 mg tablet 100 mg PO DAILY aspirin 81 mg tablet,delayed release (DR/EC) 81 mg PO DAILY allopurinol 300 mg tablet 300 mg PO DAILY Patient Comments: TAKE 1 TABLET BY MOUTH DAILY lisinopril 5 mg Tablet 5 mg PO DAILY cholecalciferol (vitamin D3) 125 mcg (5,000 unit) Capsule 125 mcg PO DAILY zinc 50 mg Capsule 50 mg PO DAILY quercetin 500 mg Capsule 500 mg PO DAILY Primary Care Provider: Graham Rincon Referrals: Graham Rincon MD [Primary Care Provider] - 1 Week if not improving Activity Restrictions/Additional Instructions: Use incentive spirometry every hour while awake for the next 5 to 7 days. Apply ice to the right side of your chest 6-10 times a day Disposition Disposition: Home, Self Care
[2023-08-02] MEDS: Ondansetron 4 MG/2 ML Vial IV (19:48)
[2023-08-02] MEDS: Morphine 4 MG/ML Syringe IV (19:49)
[2023-08-02] MEDS: Ketorolac 30 MG/ML Syringe 15 MG IV (19:49)
--- NOTE | 2023-08-02 20:00 | RAD_ITS ---
STUDY: X-RAY - UNILATERAL RIBS ( RIGHT ) WITH CHEST REASON FOR EXAM: Female, 63 years old. Blunt trauma with chest pain right side TECHNIQUE - RIBS: 4 view(s) of the ribs. TECHNIQUE - CHEST: Single frontal view of the chest. COMPARISON: Chest x-ray September 04, 2014 FINDINGS - RIBS: Normal visualized ribs without a demonstrated fracture. FINDINGS - CHEST: There is mild linear left lower lung scarring or atelectasis. There is no demonstrated pleural abnormality. Normal size heart. Normal mediastinum and christie. Normal visualized pulmonary arteries. Normal visualized aortic arch and descending thoracic aorta. There are diffuse degenerative changes of the visualized thoracic spine. Normal visualized ribs, clavicles, and shoulders. There is no demonstrated abnormality of the visualized soft tissue structures of the upper abdomen. RAD/Ribs Uni Min 3V w/PA Chest IMPRESSION: RIBS: Normal x-ray examination of the ribs. CHEST: Degenerative changes, as described above. No demonstrated acute cardiopulmonary process. Electronically Signed: Martin Garcia MD at 20:21 EDT ,
[2023-08-02 20:22] VITALS: BP 134/78; PULSE 64; RESP 14; TEMP 37; O2SAT 99
== END 2023-08-02 20:34 | disposition home or self-care (01) ==
PROVIDERS: Emergency Provider Emergency Medicine; PCP Family Medicine; Visit Provider Emergency Medicine
DX: S20.211A Contusion of right front wall of thorax, initial encounter (principal); S29.009A Unspecified injury of muscle and tendon of unspecified wall of thorax, initial encounter; G47.33 Obstructive sleep apnea (adult) (pediatric); E66.9 Obesity, unspecified; Z86.718 Personal history of other venous thrombosis and embolism; Z87.891 Personal history of nicotine dependence; W19.XXXA Unspecified fall, initial encounter
CPT/HCPCS: 71101; 96374; 96375; 99284; J2405

== ENCOUNTER 2024-05-13 08:27 | Emergency (ER) | payer MEDICARE, MEDICAID, SELFPAY ==
[2024-05-13 08:28] VITALS: BP 115/70; PULSE 101; RESP 16; TEMP 36.6; O2SAT 97; BMI 37.1
--- NOTE | 2024-05-13 08:41 | EDS_ITS ---
HPI History of Present Illness Chief Complaint: Lower Extremity Injury Narrative Narrative: 53-year-old female past medical history of previous DVTs, 1 kidney, presents with right lower extremity leg pain that she has had for the last few days. Is mainly behind her knee and calf. She noticed today that her lower extremity is reddened. She denies any chest pain or shortness of breath. No fevers or chills. She does relate history that she sustained small clot on her right lower extremity in her medial gastrocnemius area about a month ago. It is not healing well, but admittedly at times she picks at it. While she has had 2 DVTs in the past, she only takes aspirin because she was told that other blood thinning agents are not good for her solitary kidney. She presents with concern for blood clot. She denies any right thigh pain. [facility] Medical History Edema of both lower extremities due to peripheral venous insufficiency Renal carcinoma GERD (gastroesophageal reflux disease) Obstructive sleep apnea DVT (deep venous thrombosis) Home Medications ?Medication ?Instructions ?Recorded ?Last Taken ?Type aspirin 81 mg tablet,delayed 81 mg PO DAILY 12/19/18 Unknown History release potassium citrate 10 mEq (1,080 10 meq PO TID 12/19/18 Unknown History mg) tablet,extended release sertraline 100 mg tablet (Zoloft) 100 mg PO DAILY 12/19/18 Unknown History allopurinol 300 mg tablet 300 mg PO DAILY 08/15/22 Unknown History cholecalciferol (vitamin D3) 125 125 mcg PO DAILY 08/15/22 Unknown History mcg (5,000 unit) capsule lisinopril 5 mg tablet 5 mg PO DAILY 08/15/22 Unknown History quercetin 500 mg capsule 500 mg PO DAILY 08/15/22 Unknown History zinc 50 mg capsule 50 mg PO DAILY 08/15/22 Unknown History oxycodone-acetaminophen 5 mg-325 1 tab PO Q6H PRN PRN pain 5 days 08/02/23 Unknown Rx mg tablet #20 TABLETS amoxicillin 875 mg-potassium 1 tab PO BID #20 tabs 05/13/24 Unknown Rx clavulanate 125 mg tablet Allergy/AdvReac Type Severity Reaction Status Date / Time Sulfa (Sulfonamide Allergy Other Verified 05/13/24 08:32 Antibiotics) Family History Father CAD (coronary artery disease) age 47 y/o from [place] Surgical History History of left nephrectomy History of extraction of renal calculus Hx of cholecystectomy History of tonsillectomy and adenoidectomy History of right and left heart catheterization (~09/04/15) Social History household members: spouse Smoking Status: Former smoker ROS ROS ED ROS Narrative Constitutional: No fever, no chills. HEENT: No sore throat. No neck pain. No loss of vision. No rhinorrhea. Cardiovascular: No chest pain. No palpitations. No pedal edema. Respiratory: No cough, no shortness of breath. Abdominal: No abdominal pain. No nausea. No vomiting. Genitourinary: No dysuria. No hematuria. Musculoskeletal: No myalgias. No arthralgias but complains of pain behind right knee and in right calf. Neurologic: No headaches. No dizziness. No lightheadedness. Skin: No rash. Positive redness to right lower leg. Psychiatric: No depression. No anxiety. EXAM Physical Exam Narrative Exam Narrative: Afebrile. Vital signs noted. Regular rate and rhythm. Lungs clear to auscultation bilaterally. Abdomen soft and nontender with normoactive bowel sounds. Inspection of the right lower extremity does reveal circumferential erythema of the lower leg. There is a small area contained within the medial gastrocnemius area/medial anterior tibial area of a break in the skin that is slowly healing. No tenderness to right medial thigh. Full range of motion right knee including flexion and extension. Palpable dorsalis pedis pulse. Const Vital Signs: 05/13/24 08:28 05/13/24 09:32 05/13/24 10:00 Temperature 98 F 98.2 F 96.7 F L Temperature Source Temporal Temporal Temporal Pulse Rate 101 H 78 71 Respiratory Rate 16 18 18 Blood Pressure 115/70 111/60 113/53 L Blood Pressure Mean 85 77 73 Pulse Ox 97 98 98 Oxygen Delivery Method Room Air Room Air Room Air MDM MDM MDM Narrative Medical decision making narrative: I reviewed the patient's prior records and problem list. She does have peripheral venous insufficiency listed. This may be why her cuff was not healing well. Differential diagnosis includes but not limited to cellulitis of the right lower extremity versus DVT as she is not on thinning agent except for aspirin. I do not feel she requires laboratory work. Ultrasound will be obtained to rule out DVT. Should this be negative, we will put her on antibiotics for cellulitis. She does have a sulfa allergy. According to the tech, her ultrasound is negative for DVT. At this point in time, I do feel that she can be discharged with a prescription for antibiotics. She is given her first dose of Augmentin here and a prescription written for the next 10 days to take twice daily. She will return with fever, increased pain or redness, new or worsening symptoms. Otherwise, she can follow-up with her primary care provider. Disposition is discharged home in stable condition. History & Record Review Discussion w/independent historian: Patient Discharge Plan Triage Chief Complaint: Lower Extremity Injury ED Provider: Avel Richardson Dx/Rx/DC Orders Clinical Impression: Cellulitis of right lower extremity Instructions: ED Cellulitis Prescriptions: New amoxicillin-pot clavulanate 875-125 mg tablet 1 tab PO BID Qty: 20 0RF No Action potassium citrate 10 mEq (1,080 mg) tablet extended release 10 meq PO TID sertraline [Zoloft] 100 mg tablet 100 mg PO DAILY aspirin 81 mg tablet,delayed release (DR/EC) 81 mg PO DAILY allopurinol 300 mg tablet 300 mg PO DAILY Patient Comments: TAKE 1 TABLET BY MOUTH DAILY lisinopril 5 mg Tablet 5 mg PO DAILY cholecalciferol (vitamin D3) 125 mcg (5,000 unit) Capsule 125 mcg PO DAILY zinc 50 mg Capsule 50 mg PO DAILY quercetin 500 mg Capsule 500 mg PO DAILY oxycodone-acetaminophen [oxycodone-acetaminophen] 5-325 mg tablet 1 tab PO Q6H PRN PRN (Reason: pain) 5 Days Qty: 20 0RF Primary Care Provider: Graham Rincon Referrals: Graham Rincon MD [Primary Care Provider] - 3-5 Days if not improving Activity Restrictions/Additional Instructions: Return to the emergency department with fever, increased swelling and pain, increased redness, new or worsening symptoms. Take all of the antibiotic as directed. Print Language: Hong Konger Disposition Disposition: Home, Self Care
--- NOTE | 2024-05-13 08:41 | VDLE_ITS ---
Reason For Study: Pain RLE RIGHT LEFT GSV is normal. CFV is compressible, spontaneous, phasic, CFV is compressible, spontaneous, phasic, competent, and demonstrates normal competent and demonstrates normal augmentation. augmentation. FV is compressible, spontaneous, phasic, competent and demonstrates normal augmentation. POP V is compressible, spontaneous, phasic, competent and demonstrates normal augmentation. T/P Trunk is compressible. PTV is compressible. RT PerV is compressible. Procedure This is a venous duplex using B-mode, color flow and spectral Doppler. Exam performed portable in ED. A preliminary report was called and/or faxed to Dr. Richardson. VL/Venous Duplex US, Unilateral Interpretation Summary Deep veins of the right lower extremity are patent and compressible segmentally . There is no evidence of right lower extremity deep vein thrombosis. The right great sapheno us vein appears patent and compressible segmentally. Ordering Physician: Avel Richardson Referring Physician: Vivek Rincon Performed By: Mone Omalley, OCTAVIO, RVT
[2024-05-13 09:32] VITALS: BP 111/60; PULSE 78; RESP 18; TEMP 36.8; O2SAT 98
[2024-05-13 10:00] VITALS: BP 113/53; PULSE 71; RESP 18; TEMP 35.9; O2SAT 98
[2024-05-13] MEDS: Amox/Clavulanate 875 MG Tablet PO (11:38)
[2024-05-13 11:42] VITALS: BP 105/55; PULSE 87; RESP 16; TEMP 36.6; O2SAT 99
== END 2024-05-13 11:43 | disposition home or self-care (01) ==
PROVIDERS: Emergency Provider Emergency Medicine; PCP Family Medicine; Visit Provider Emergency Medicine
DX: L03.115 Cellulitis of right lower limb (principal); G47.33 Obstructive sleep apnea (adult) (pediatric); Z87.891 Personal history of nicotine dependence; Z86.718 Personal history of other venous thrombosis and embolism
CPT/HCPCS: 93971; 99282